=== PATIENT | male | born 1980 | race American Indian/Alaskan Native ===

== ENCOUNTER 2017-05-02 03:22 | Inpatient (IN) | payer OTHER ==
[2017-05-02] MEDS ORDERED: Sodium Chloride 0.9% 2,000 ML IV ONE (03:49)
--- NOTE | 2017-05-02 03:49 | C.PDOC ---
History Of Present Illness 37 year old male presents to the ED for evaluation of nausea, vomiting and diarrhea associated with abdominal cramping which began this evening. Patient also reports chills. He denies fever and sick contacts at this time. Time Seen by Provider: 05/02/17 03:38 Chief Complaint (Nursing): Abdominal Pain History Per: Patient History/Exam Limitations: no limitations Onset/Duration Of Symptoms: Hrs Current Symptoms Are (Timing): Still Present Quality Of Discomfort: Cramping Associated Symptoms: Chills, Nausea, Vomiting, Diarrhea. denies: Fever Last Bowel Movement: Today Additional History Per: Patient Past Medical History Reviewed: Historical Data, Nursing Documentation, Vital Signs Vital Signs: Last Vital Signs Temp 97.6 F 05/02/17 03:34 Pulse 45 L 05/02/17 03:34 Resp 20 05/02/17 03:34 BP 167/93 H 05/02/17 03:34 Pulse Ox 97 05/02/17 04:58 - Medical History PMH: No Chronic Diseases Surgical History: No Surg Hx Family History: States: Unknown Family Hx - Social History Hx Alcohol Use: Yes Hx Substance Use: Yes (marijuana) - Immunization History Hx Tetanus Toxoid Vaccination: Yes Hx Influenza Vaccination: Yes Hx Pneumococcal Vaccination: No Review Of Systems Constitutional: Positive for: Chills. Negative for: Fever Gastrointestinal: Positive for: Nausea, Vomiting, Diarrhea, Other (abdominal cramping ) Physical Exam - Physical Exam Appears: Non-toxic, Other (uncomfortable, reports chills, actively vomiting ( bilious) ) Skin: Normal Color, Warm, Dry Head: Atraumatic, Normacephalic Eye(s): bilateral: Normal Inspection Oral Mucosa: Moist Neck: Supple Chest: Symmetrical, No Deformity, No Tenderness Cardiovascular: Rhythm Regular, No Murmur Respiratory: Normal Breath Sounds, No Rales, No Rhonchi, No Wheezing Gastrointestinal/Abdominal: Soft, No Tenderness, No Guarding, No Rebound Extremity: Normal ROM, Capillary Refill (less than 2 seconds ) Neurological/Psych: Oriented x3, Normal Speech, Normal Cognition Gait: Steady ED Course And Treatment - Laboratory Results Result Diagrams: 05/02/17 03:50 05/02/17 03:50 O2 Sat by Pulse Oximetry: 97 (on RA) Pulse Ox Interpretation: Normal Progress Note: Bloodwork ordered and reviewed. Bentyl IM, Lomotil PO, Zofran IVP and IV Fluids administered. Progress - Re-Evaluation Re-evaluation Note: 05/02/17 04:58 RECUR NV. ABD CRAMPING IMPROVED - Data Reviewed Data Reviewed: Lab, Old records Disposition - Disposition Disposition Time: 07:00 Condition: STABLE Forms: [employer] ([place]) - Clinical Impression Clinical Impression: Abdominal pain, Cholecystitis, acute - Scribe Statement The provider has reviewed the documentation as recorded by the Scribe (Ria Mar) Provider Attestation: All medical record entries made by the Scribe were at my direction and personally dictated by me. I have reviewed the chart and agree that the record accurately reflects my personal performance of the history, physical exam, medical decision making, and the department course for this patient. I have also personally directed, reviewed, and agree with the discharge instructions and disposition. Physician Patient Turnover Patient Signed Over To: Jeremiah Tirado DO Handoff Comments: FU SURGERY, DISPO
[2017-05-02] MEDS ORDERED: Atropine-Diphenoxylate 0.025-2.5 mg Tab PO STA (03:50)
[2017-05-02] MEDS ORDERED: Atropine-Diphenoxylate 0.025-2.5 mg Tab ONE (03:57)
[2017-05-02] MEDS ORDERED: Sodium Chloride 0.9% 2,000 ML ONE (03:57)
[2017-05-02 04:02] LABS: BASO # 0.1 K/uL (0.0-0.2); BASO % 0.6 % (0.0-2.0); EOS % 0.5 % (0.0-4.0); HEMATOCRIT 39.4 % (35.0-51.0); LYMPH # 0.9 K/uL (1.0-4.3); LYMPH % 10.7 % (20.0-40.0); MEAN CELL VOLUME 87.1 fL (80.0-94.0); MEAN CORPUSCULAR HGB CONC 34.5 g/dL (33.0-37.0); MEAN PLATELET VOLUME 10.6 fL (7.2-11.7); MONO # 0.5 K/uL (0.0-0.8); MONO % 5.2 % (0.0-10.0); RED CELL DISTRIBUTION WIDTH 14.3 % (11.5-14.5); WHITE BLOOD COUNT 8.7 K/uL (4.8-10.8)
[2017-05-02 04:14] LABS: CHLORIDE 102 mmol/L (98-107); SODIUM 137 mmol/L (132-148)
[2017-05-02 04:15] LABS: POTASSIUM 3.8 mmol/L (3.6-5.2)
[2017-05-02 04:17] LABS: GFR AFRICAN-AMERICAN > 60
[2017-05-02 04:18] LABS: BLOOD UREA NITROGEN 16 mg/dL (9-20); CALCIUM 9.6 mg/dl (8.6-10.4); CARBON DIOXIDE 23 mmol/L (22-30); GLUCOSE,RANDOM 131 mg/dL (75-110)
[2017-05-02] MEDS ORDERED: Iodixanol 320 MG/ML 100 ML BOTTLE IV ONE (05:41)
--- NOTE | 2017-05-02 06:43 | CT ---
EXAM: CT Abdomen and Pelvis With Intravenous Contrast EXAM DATE/TIME: 05/02/2017 5:28 AM CLINICAL HISTORY: 37 years old, male; Pain; Abdominal pain; Additional info: Abd pain nvd TECHNIQUE: Axial computed tomography images of the abdomen and pelvis with intravenous contrast. All CT scans at this facility use one or more dose reduction techniques, viz.: automated exposure control; ma/kV adjustment per patient size (including targeted exams where dose is matched to indication; i.e. head); or iterative reconstruction technique. Coronal and sagittal reformatted images were created and reviewed. CONTRAST: 100 mL of [id number] administered intravenously. COMPARISON: No relevant prior studies available. FINDINGS: The gallbladder wall appears thickened and indistinct. There is fluid and stranding in the pericholecystic fat. Finding suggest acute cholecystitis. Clinical correlation recommended. There are no gallstones identified suggesting this either represents acalculus cholecystitis or possibly gallstones could be seen on ultrasound if clinically indicated. Mild periportal edema. The spleen is normal. The pancreas is normal. No hydronephrosis or perinephric stranding. The small bowel appears normal. Decompressed colon limits evaluation of the wall. Moderate amount stool in the sigmoid colon. A normal appendix is identified series 3 images 119 through 132. IMPRESSION: Findings supportive of cholecystitis, possibly acalculus in nature.
--- NOTE | 2017-05-02 09:33 | US ---
HISTORY: RUQ pain - f/u to CT last night COMPARISON: And pelvis CT examinations dated 05/02/2017. TECHNIQUE: Sonographic evaluation of the right upper quadrant of the abdomen. FINDINGS: LIVER: Measures 20.0 cm in length. Normal echogenicity of the liver parenchyma. No mass. No intrahepatic bile duct dilatation. Moderate hepatomegaly is encountered. GALLBLADDER: Gallbladder wall appears thickened with trace pericholecystic fluid. No cholelithiasis or sludge is seen in the lumen however there is sonographic Licea sign. The findings are highly suspicious for cholecystitis. Clinically correlate further. COMMON BILE DUCT: Measures 3.3 mm. No stones. No dilatation. PANCREAS: The tail of the pancreas is obscured by overlying bowel gas with remainder unremarkable. RIGHT KIDNEY: Measures 12.2 cm in length. Normal echogenicity. No calculus, mass, or hydronephrosis. AORTA: No aneurysmal dilatation. IVC: Unremarkable. OTHER FINDINGS: None . IMPRESSION: Abnormal gallbladder findings suggest cholecystitis. No cholelithiasis or significant CBD dilatation. Clinically correlate further.
[2017-05-02 10:21] LABS: ALB/GLOB RATIO 1.9 (1.0-2.1); ALKALINE PHOSPHATASE 63 U/L (38-126); ALT/SGPT 42 U/L (21-72); AST/SGOT 37 U/L (17-59); BILIRUBIN,TOTAL 0.7 mg/dL (0.2-1.3); BLOOD UREA NITROGEN 12 mg/dL (9-20); CALCIUM 8.7 mg/dl (8.6-10.4); CARBON DIOXIDE 25 mmol/L (22-30); CHLORIDE 101 mmol/L (98-107); GFR AFRICAN-AMERICAN > 60; GLUCOSE,RANDOM 121 mg/dL (75-110); POTASSIUM 3.9 mmol/L (3.6-5.2); SODIUM 137 mmol/L (132-148); TOTAL PROTEIN 6.5 g/dL (6.3-8.3)
[2017-05-02] MEDS ORDERED: HYDROmorphone 1 mg/ml ISec IVP PRN (10:51)
[2017-05-02] MEDS ORDERED: HYDROmorphone 0.5 mg/0.5 ml ISec IVP PRN (10:51)
--- NOTE | 2017-05-02 11:02 | CP.PCM.HP ---
History of Present Illness - History of Present Illness History of Present Illness: General Surgery H&P for Dr. Sue CC: abdominal pain, nausea, vomiting, diarrhea HPI: Patient is a 37 year old male with no significant pmhx who presented to the ED for abdominal pain, nausea, vomiting, and diarrhea that started at 11:30 pm last night. Patient was out to dinner celebrating his birthday around 8:30pm and ate lobster macaroni and cheese and drank some sangria and 3 vodka shots. At about 11:30 pm patient started to have severe generalized abdominal pain which he rated as a 15/10. Patient says he had at least 10 episodes of vomiting. The vomitus at first consisted of the food from dinner and then became yellow liquid bile. Patient said there was no blood in the vomit. Patient also had 2 episodes of diarrhea with no blood. Patient denies any fevers or chills. Patient took no medications for the pain. Currently patient says the pain is generalized and rates it as a 4/10. Patient is still nauseous and has had multiple episodes of vomiting in the ED. Patient denies shortness of breath or chest pain. Pmhx: none Psurg: none Famhx: Dad- CHF Social: smokes about 1 blunt of marijuana a day, drinks alcohol about once per month All: none Home Meds: none Present on Admission - Present on Admission Any Indicators Present on Admission: No History of DVT/PE: No History of Uncontrolled Diabetes: No Urinary Catheter: No Decubitus Ulcer Present: No Review of Systems - Constitutional Constitutional: absent: Chills, Fever - Cardiovascular Cardiovascular: absent: Chest Pain, Claudication, Dyspnea, Irregular Heart Rhythm - Respiratory Respiratory: absent: Dyspnea on Exertion - Gastrointestinal Gastrointestinal: Diarrhea, Nausea, Vomiting. absent: Hematemesis, Hematochezia - Musculoskeletal Musculoskeletal: absent: Muscle Weakness - Integumentary Integumentary: absent: Changing Lesions, Rash - Hematologic/Lymphatic Hematologic: absent: Easy Bleeding, Easy Bruising Past Patient History - Past Social History Smoking Status: Light Smoker < 10 Cigarettes Daily - PSYCHIATRIC Hx Substance Use: Yes (marijuana) - SURGICAL HISTORY Hx Surgeries: No - ANESTHESIA Hx Anesthesia: No Meds Allergies/Adverse Reactions: Allergies Allergy/AdvReac Type Severity Reaction Status Date / Time No Known Allergies Allergy Verified 05/02/17 03:37 Physical Exam - Constitutional Appears: Non-toxic, In Acute Distress - Head Exam Head Exam: ATRAUMATIC, NORMAL INSPECTION, NORMOCEPHALIC - Eye Exam Eye Exam: EOMI, Normal appearance - Respiratory Exam Respiratory Exam: Clear to Auscultation Bilateral, NORMAL BREATHING PATTERN. absent: Accessory Muscle Use, Respiratory Distress - Cardiovascular Exam Cardiovascular Exam: REGULAR RHYTHM, +S1, +S2 - GI/Abdominal Exam GI & Abdominal Exam: Distended, Soft, Tenderness. absent: Firm Additional comments: diffuse tenderness - Extremities Exam Extremities exam: Positive for: full ROM, normal inspection. Negative for: pedal edema - Neurological Exam Neurological exam: Alert, Oriented x3 - Psychiatric Exam Psychiatric exam: Normal Affect - Skin Skin Exam: Intact, Normal Color, Warm Results - Vital Signs Recent Vital Signs: Last Vital Signs Temp 97.7 F 05/02/17 07:04 Pulse 92 H 05/02/17 09:20 Resp 18 05/02/17 09:20 BP 176/93 H 05/02/17 09:20 Pulse Ox 97 05/02/17 09:20 - Labs Result Diagrams: 05/02/17 03:50 05/02/17 10:19 Labs: Laboratory Results - last 24 hr 05/02/17 05/02/17 05/02/17 03:50 03:50 05:31 WBC 8.7 RBC 4.52 Hgb 13.6 Hct 39.4 MCV 87.1 MCH 30.0 MCHC 34.5 RDW 14.3 Plt Count 154 MPV 10.6 Neut % (Auto) 83.0 H Lymph % (Auto) 10.7 L [place] % (Auto) 5.2 Eos % (Auto) 0.5 Baso % (Auto) 0.6 Neut # 7.2 H Lymph # 0.9 L [place] # 0.5 Eos # 0.0 Baso # 0.1 Sodium 137 Potassium 3.8 Chloride 102 Carbon Dioxide 23 Anion Gap 16 BUN 16 Creatinine 0.7 L Est GFR ( Amer) > 60 Est GFR (Non-Af Amer) > 60 Random Glucose 131 H Calcium 9.6 Total Bilirubin AST ALT Alkaline Phosphatase Total Protein Albumin Globulin Albumin/Globulin Ratio Lipase 55 05/02/17 10:19 WBC RBC Hgb Hct MCV MCH MCHC RDW Plt Count MPV Neut % (Auto) Lymph % (Auto) [place] % (Auto) Eos % (Auto) Baso % (Auto) Neut # Lymph # [place] # Eos # Baso # Sodium 137 Potassium 3.9 Chloride 101 Carbon Dioxide 25 Anion Gap 15 BUN 12 Creatinine 0.8 Est GFR ( Amer) > 60 Est GFR (Non-Af Amer) > 60 Random Glucose 121 H Calcium 8.7 Total Bilirubin 0.7 AST 37 ALT 42 Alkaline Phosphatase 63 Total Protein 6.5 Albumin 4.2 Globulin 2.2 Albumin/Globulin Ratio 1.9 Lipase Assessment & Plan - Assessment and Plan (Free Text) Assessment: 37 y/o M with acute cholecystitis seen on ultrasound Plan: -Antibiotics -Pain control -Nausea meds -Protonix -NPO with IV fluids -Possible OR today/tomorrow -Further recommendations as per Dr. Sue
[2017-05-02] MEDS ORDERED: Sodium Chloride 0.9% 1,000 ML ONE (11:09)
[2017-05-02] MEDS ORDERED: Ciprofloxacin 400mg/200ml D5W 400 MG/200 ML BAG IVPB ONE (11:10)
[2017-05-02] MEDS ORDERED: HYDROmorphone 0.5 mg/0.5 ml ISec ONE (11:10)
[2017-05-02] MEDS: Sodium Chloride 0.9% 1,000 ML IV SCH ×2 (11:15→22:07)
[2017-05-02] MEDS: Ciprofloxacin 400mg/200ml D5W 400 MG/200 ML BAG IVPB SCH ×2 (11:16→22:06)
[2017-05-02] MEDS: metroNIDAZOLE IV 500 mg/100 ml 500 MG/100 ML BAG IVPB SCH ×2 (14:17→22:05)
[2017-05-03 02:22] VITALS: RESP 20
[2017-05-03 05:09] VITALS: O2SAT 99
[2017-05-03] MEDS: metroNIDAZOLE IV 500 mg/100 ml 500 MG/100 ML BAG IVPB SCH (05:37)
[2017-05-03] MEDS: Sodium Chloride 0.9% 1,000 ML IV SCH ×3 (05:39→12:10)
[2017-05-03 07:27] LABS: BASO % 0.4 % (0.0-2.0); EOS % 0.1 % (0.0-4.0); HEMATOCRIT 37.6 % (35.0-51.0); LYMPH % 9.1 % (20.0-40.0); MEAN CELL VOLUME 87.5 fL (80.0-94.0); MEAN CORPUSCULAR HEMOGLOBIN 29.8 pg (27.0-31.0); MEAN PLATELET VOLUME 10.1 fL (7.2-11.7); MONO # 0.8 K/uL (0.0-0.8); MONO % 7.4 % (0.0-10.0); PLATELET COUNT 148 K/uL (130-400); RED CELL DISTRIBUTION WIDTH 14.3 % (11.5-14.5); WHITE BLOOD COUNT 10.9 K/uL (4.8-10.8)
[2017-05-03 08:08] LABS: CHLORIDE 99 mmol/L (98-107); POTASSIUM 3.9 mmol/L (3.6-5.2); SODIUM 132 mmol/L (132-148)
[2017-05-03 08:10] LABS: GFR AFRICAN-AMERICAN > 60
[2017-05-03 08:11] LABS: ALB/GLOB RATIO 1.7 (1.0-2.1); ALKALINE PHOSPHATASE 52 U/L (38-126); ALT/SGPT 42 U/L (21-72); AST/SGOT 43 U/L (17-59); BLOOD UREA NITROGEN 16 mg/dL (9-20); CARBON DIOXIDE 24 mmol/L (22-30); GLUCOSE,RANDOM 106 mg/dL (75-110); TOTAL PROTEIN 6.2 g/dL (6.3-8.3)
[2017-05-03 08:12] LABS: CALCIUM 8.3 mg/dl (8.6-10.4)
[2017-05-03 08:44] VITALS: BP 147/79; PULSE 61; TEMP 98.5
[2017-05-03] MEDS: Ciprofloxacin 400mg/200ml D5W 400 MG/200 ML BAG IVPB SCH (10:23)
[2017-05-03 11:01] LABS: NEUTROPHIL 81 % (50-75); TOTAL CELLS COUNTED 100
[2017-05-03 11:05] LABS: LARGE PLATELETS PRESENT
--- NOTE | 2017-05-03 11:13 | CP.PCM.PN ---
Subjective - Date & Time of Evaluation Date of Evaluation: 05/03/17 Time of Evaluation: 11:09 - Subjective Subjective: Surgery Progress Note for Dr. Maria HPI: Patient seen and examined at bedside. Doing well. Complaining of pain that keeps her awake at night. Also complaining of some mild drainage from incision site. No other complaints at this time. Objective - Vital Signs/Intake and Output Vital Signs (last 24 hours): Temp Pulse Resp BP Pulse Ox 98.5 F 61 20 147/79 99 05/03/17 07:00 05/03/17 07:00 05/03/17 07:00 05/03/17 07:00 05/03/17 07:00 Intake and Output: 05/03/17 05/03/17 06:59 18:59 Intake Total 1080 Output Total 700 Balance 380 - Medications Medications: Current Medications Hydromorphone HCl (Dilaudid) 0.5 mg IVP Q3 PRN PRN Reason: Pain, moderate (4-7) Last Admin: 05/02/17 11:17 Dose: 0.5 mg Hydromorphone HCl (Dilaudid) 1 mg IVP Q3 PRN PRN Reason: Pain, severe (8-10) Sodium Chloride (Sodium Chloride 0.9%) 1,000 mls @ 120 mls/hr IV .Q8H20M [facility] Last Admin: 05/03/17 10:24 Dose: 120 mls/hr Ciprofloxacin (Cipro 400mg/200ml Dsw) 400 mg in 200 mls @ 133 mls/hr IVPB Q12H [facility] Last Admin: 05/03/17 10:23 Dose: 133 mls/hr Metronidazole (Flagyl) 500 mg in 100 mls @ 100 mls/hr IVPB Q8 [facility] Last Admin: 05/03/17 05:37 Dose: 100 mls/hr Ondansetron HCl (Zofran Inj) 4 mg IVP Q4 PRN PRN Reason: Nausea/Vomiting Last Admin: 05/03/17 08:58 Dose: 4 mg Pantoprazole Sodium (Protonix Inj) 40 mg IVP DAILY [facility] Last Admin: 05/03/17 09:04 Dose: 40 mg - Labs Labs: 05/03/17 07:17 05/03/17 07:17 - Constitutional Appears: Well, Non-toxic, No Acute Distress - Head Exam Head Exam: ATRAUMATIC, NORMAL INSPECTION, NORMOCEPHALIC - Eye Exam Eye Exam: EOMI Pupil Exam: NORMAL ACCOMODATION - ENT Exam ENT Exam: Mucous Membranes Moist - Respiratory Exam Respiratory Exam: Clear to Ausculation Bilateral, NORMAL BREATHING PATTERN - Cardiovascular Exam Cardiovascular Exam: REGULAR RHYTHM - GI/Abdominal Exam GI & Abdominal Exam: Soft, Normal Bowel Sounds. absent: Distended, Tenderness Additional comments: no current drainage from abdominal incision. Incision is clean and dry without evidence of infection.
--- NOTE | 2017-05-03 15:10 | CP.PCM.PN ---
Subjective - Date & Time of Evaluation Date of Evaluation: 05/03/17 Time of Evaluation: 15:07 - Subjective Subjective: Surgery: Dr. Sue Pt seen and examined. Resting comfortably in bed. Pain is improved. Tolerating diet. Mild nausea. No vomiting. Pt would like to go home. Objective - Vital Signs/Intake and Output Vital Signs (last 24 hours): Temp Pulse Resp BP Pulse Ox 98.5 F 61 20 147/79 99 05/03/17 07:00 05/03/17 07:00 05/03/17 07:00 05/03/17 07:00 05/03/17 07:00 Intake and Output: 05/03/17 05/03/17 06:59 18:59 Intake Total 1080 Output Total 700 Balance 380 - Medications Medications: Current Medications Hydromorphone HCl (Dilaudid) 0.5 mg IVP Q3 PRN PRN Reason: Pain, moderate (4-7) Last Admin: 05/02/17 11:17 Dose: 0.5 mg Hydromorphone HCl (Dilaudid) 1 mg IVP Q3 PRN PRN Reason: Pain, severe (8-10) Sodium Chloride (Sodium Chloride 0.9%) 1,000 mls @ 120 mls/hr IV .Q8H20M [facility] Last Admin: 05/03/17 12:10 Dose: Not Given Ciprofloxacin (Cipro 400mg/200ml Dsw) 400 mg in 200 mls @ 133 mls/hr IVPB Q12H [facility] Last Admin: 05/03/17 10:23 Dose: 133 mls/hr Metronidazole (Flagyl) 500 mg in 100 mls @ 100 mls/hr IVPB Q8 [facility] Last Admin: 05/03/17 05:37 Dose: 100 mls/hr Ondansetron HCl (Zofran Inj) 4 mg IVP Q4 PRN PRN Reason: Nausea/Vomiting Last Admin: 05/03/17 14:59 Dose: 4 mg Pantoprazole Sodium (Protonix Inj) 40 mg IVP DAILY [facility] Last Admin: 05/03/17 09:04 Dose: 40 mg - Labs Labs: 05/03/17 07:17 05/03/17 07:17 - Constitutional Appears: Non-toxic, No Acute Distress - Head Exam Head Exam: ATRAUMATIC, NORMOCEPHALIC - Eye Exam Eye Exam: EOMI - ENT Exam ENT Exam: Mucous Membranes Moist - Neck Exam Neck Exam: Full ROM - Respiratory Exam Respiratory Exam: NORMAL BREATHING PATTERN. absent: Accessory Muscle Use, Respiratory Distress - GI/Abdominal Exam GI & Abdominal Exam: Soft. absent: Distended, Firm, Guarding, Rigid, Tenderness , Rebound - Extremities Exam Extremities Exam: absent: Calf Tenderness, Pedal Edema - Neurological Exam Neurological Exam: Alert, Awake, Oriented x3 - Psychiatric Exam Psychiatric exam: Normal Affect, Normal Mood - Skin Skin Exam: Dry, Warm Assessment and Plan - Assessment and Plan (Free Text) Assessment: 37M w. abd pain -symptoms improved, tolerating diet -clear for D/C from surgical standpoint -f/u with Dr. Sue in 1-2 weeks -return to ED if symptoms worsen -Activity and diet as tolerated -d/w attending Zemaitis PGY3
== END 2017-05-03 16:40 | disposition home or self-care (01) | DRG 446 ==
LOC: C.ER 03:22 → C.9E 10:51 → C.6T 11:11
PROVIDERS: ADMIT Specialist; ATTEND Specialist
DX: K81.0 Acute cholecystitis (principal); F10.10 Alcohol abuse, uncomplicated; F12.90 Cannabis use, unspecified, uncomplicated; F17.210 Nicotine dependence, cigarettes, uncomplicated

== ENCOUNTER 2017-09-21 09:43 | Emergency (ER) | payer BC, OTHER ==
[2017-09-21 10:10] VITALS: RESP 18; O2SAT 98
--- NOTE | 2017-09-21 11:05 | C.PDOC ---
History Of Present Illness Pt was treated by his PMD with Keflex for facial abscess with improvement. He is in the ED today because although improved, abscess has not completely resolved. Time Seen by Provider: 09/21/17 10:26 Chief Complaint (Nursing): Abnormal Skin Integrity History Per: Patient, Family Onset/Duration Of Symptoms: Days (about 1 week), Gradual Current Symptoms Are (Timing): Better Location Of Injury: Right: Face Quality Of Symptoms: Painful (mild), Swollen (mild). denies: Draining Severity: Mild Additional History Per: Prior Records Past Medical History Reviewed: Historical Data, Nursing Documentation, Vital Signs Vital Signs: Last Vital Signs Temp 98.1 F 09/21/17 09:52 Pulse 93 H 09/21/17 09:52 Resp 18 09/21/17 09:52 BP 102/66 09/21/17 09:52 Pulse Ox 98 09/21/17 09:52 - Medical History PMH: No Chronic Diseases Family History: States: Unknown Family Hx - Social History Hx Alcohol Use: Yes Hx Substance Use: Yes (marijuana) - Immunization History Hx Tetanus Toxoid Vaccination: Yes Hx Influenza Vaccination: No Hx Pneumococcal Vaccination: No Review Of Systems Except As Marked, All Systems Reviewed And Found Negative. Constitutional: Negative for: Fever, Chills, Weakness ENT: Negative for: Mouth Pain, Mouth Swelling, Throat Pain, Throat Swelling Cardiovascular: Negative for: Chest Pain Respiratory: Negative for: Shortness of Breath Gastrointestinal: Negative for: Vomiting, Abdominal Pain Musculoskeletal: Negative for: Neck Pain Neurological: Negative for: Weakness, Numbness Physical Exam - Physical Exam Appears: Non-toxic, No Acute Distress Skin: Normal Color, Warm, Dry, No Rash Head: Atraumatic, Normacephalic, Swelling (small swollen area on right cheek with some fluctuance, but no erythema or warmth.) Eye(s): bilateral: Normal Inspection, PERRL, EOMI Oral Mucosa: Moist, No Drooling, No Trismus Lips: Normal Appearing Teeth: No Tender To Palpation Gingiva: No Abscess Throat: Normal Neck: Normal ROM, Supple Lymphatic: No Adenopathy Cardiovascular: Rhythm Regular Respiratory: Normal Breath Sounds, No Accessory Muscle Use Gastrointestinal/Abdominal: Soft, No Tenderness Extremity: Normal ROM Neurological/Psych: Oriented x3, Normal Speech, Normal Cognition, Normal Cranial Nerves, Normal Motor, Normal Sensation ED Course And Treatment O2 Sat by Pulse Oximetry: 98 Pulse Ox Interpretation: Normal Reassessment Condition: Improved - Incision & Drainage Of Abscess Prep Used: Betadine Procedure: Incised W/Scalpel Blade#: (19G needle), Drained Pus, Cultures Obtained And Sent To Lab Disposition Counseled Patient/Family Regarding: Studies Performed, Diagnosis, Need For Followup, Rx Given - Disposition Referrals: Sampson Mcdemrott MD [Staff Provider] - Disposition: HOME/ ROUTINE Disposition Time: 11:07 Condition: IMPROVED Additional Instructions: Follow up with your doctor. Return to the ER if you develop fever, redness, worsening of symptoms or if you have any other concerns. Prescriptions: Clindamycin [Cleocin] 300 mg PO QID #40 cap Instructions: Boil (DC) - Clinical Impression Clinical Impression: Facial abscess
[2017-09-21 11:24] VITALS: BP 111/74; PULSE 88; TEMP 98.5
== END 2017-09-21 11:25 | disposition home or self-care (01) ==
LOC: C.ER 09:43
DX: L02.01 Cutaneous abscess of face (principal)